=== PATIENT | male | born 1950 | race Caucasian/White ===

== ENCOUNTER 2018-11-15 17:24 | Emergency (ER) | payer BC, MEDICARE ==
[2018-11-15 18:23] VITALS: BP 150/78; PULSE 58
[2018-11-15] MEDS ORDERED: Lidocaine 1% with EPINEPHrine 1:100,000 20 ML MDV INFILT ONE (18:26)
--- NOTE | 2018-11-15 18:45 | EDM.PDOC ---
ED HPI GENERAL MEDICAL PROBLEM - General Chief Complaint: Skin Complaint Stated Complaint: LEFT UPPER ARM BLEEDING Time Seen by Provider: 11/15/18 18:10 Source of Information: Reports: Patient History Limitations: Reports: No Limitations - History of Present Illness INITIAL COMMENTS - FREE TEXT/NARRATIVE: Pt. presents to ER with complaints of post-op bleeding. Pt. states that he had a shave biopsy of a lesion on the L upper arm. He is currently on plavix but is not anticoagulated. He states that he has been painting his house and states that the area began to bleed. He was unable to get the bleeding to stop and came to the ER. He denies any discomfort to the area. Onset: Today Location: Reports: Upper Extremity, Left - Related Data Allergies Allergy/AdvReac Type Severity Reaction Status Date / Time No Known Allergies Allergy Verified 11/15/18 18:24 Home Meds: Home Meds Clopidogrel [Plavix] 75 mg PO DAILY 04/19/14 [History] atorvaSTATin [Lipitor] 40 mg PO BEDTIME 04/19/14 [History] Aspirin [Adult Low Dose Aspirin EC] 81 mg PO DAILY 05/22/14 [History] Metoprolol Tartrate [Lopressor] 12.5 mg PO Q12HR 05/22/14 [History] Multivitamin with Minerals [Multiple Vitamin] 1 tab PO DAILY 05/22/14 [History] Nitroglycerin [Nitrostat] 0.4 mg SL ASDIRECTED PRN 05/22/14 [History] [place]-3 Fatty Acids [[place]-3] 2,000 mg PO DAILY 05/22/14 [History] Past Medical History Other Respiratory History: spot found in 2009, possible pneumonia scar - Past Surgical History Other Cardiovascular Surgeries/Procedures: stents x4 Other Musculoskeletal Surgeries/Procedures:: rotator cuff Social & Family History - Tobacco Use Smoking Status *Q: Unknown Ever Smoked ED ROS GENERAL - Review of Systems Review Of Systems: See Below Constitutional: Reports: No Symptoms Musculoskeletal: Reports: Other (see above) Skin: Reports: Other (bleeding post surgical lesion. ) ED EXAM, SKIN/RASH Exam: See Below Exam Limited By: No Limitations General Appearance: Alert, WD/WN, No Apparent Distress Skin: Warm, Dry, Other (Approx. 1 cm in diameter what appears to be a shave biopsy of L lateral upper arm. There is oozing of blood primarily from the peripheral aspects of the biopsy margin.) ED SKIN PROCEDURES - Additional/Other Procedure(s) Other (Free Text) Procedure(s): The area was cleansed with chlorhexidine and normal saline. The bleeding areas of the biopsy base was cauterized with silver nitrate. One area continued to bleed. A total of 1 ml of lido with epi was infiltrated into the area to assist with hemostasis. The area was then cauterized again with silver nitrate. No further active bleeding was noted. Area was dressed with telfa. Course - Vital Signs Last Recorded V/S: Last Vital Signs Temp 36.4 C 11/15/18 18:10 Pulse 58 L 11/15/18 18:10 Resp 18 11/15/18 18:10 BP 150/78 H 11/15/18 18:10 Pulse Ox 96 11/15/18 18:10 - Orders/Labs/Meds Meds: Medications Discontinued Medications Generic Name Dose Route Start Last Admin Trade Name Freq PRN Reason Stop Dose Admin Lidocaine/Epinephrine 20 ml 11/15/18 18:26 11/15/18 18:38 Xylocaine 1% With Epinephrine 1:100,000 INFILT 11/15/18 18:27 20 ml ONETIME ONE Administration Departure - Departure Time of Disposition: 18:48 Disposition: Home, Self-Care 01 Clinical Impression: Post-op bleeding - Discharge Information Referrals: Carly Leon DO [Primary Care Provider] - Forms: ED Department Discharge Additional Instructions: Keep dressing on for 24 hours. Return if there is any redness, swelling, or discharge from the area. Do not exert yourself tonight-no lifting or strenuous activity as this will cause it to re-bleed. - Assessment/Plan Plan: Keep dressing on for 24 hours. Return if there is any redness, swelling, or discharge from the area. Do not exert yourself tonight-no lifting or strenuous activity as this will cause it to re-bleed.
== END 2018-11-15 18:44 | disposition home or self-care (01) ==
LOC: VM.ED 17:24
DX: L76.22 Postprocedural hemorrhage of skin and subcutaneous tissue following other procedure (principal); Z79.899 Other long term (current) drug therapy
CPT/HCPCS: 12001; 99283

== ENCOUNTER 2019-11-28 02:35 | Emergency (ER) | payer MEDICARE, OTHER ==
[2019-11-28] MEDS: Ondansetron 4 MG/2 ML SDV IVPUSH ONE (02:56)
[2019-11-28] MEDS: Sodium Chloride 0.9% 1,000 ML IV ONE ×2 (02:57→04:04)
[2019-11-28] MEDS: HYDROmorphone 1 MG/ML Syringe IVPUSH ONE ×2 (02:59→04:28)
[2019-11-28] MEDS: Ketorolac 15 MG/ML SDV IVPUSH ONE (03:01)
--- NOTE | 2019-11-28 03:05 | EDM.PDOC ---
ED HPI GENERAL MEDICAL PROBLEM - General Stated Complaint: flank pain Time Seen by Provider: 11/28/19 02:35 Source of Information: Reports: Patient History Limitations: Reports: No Limitations - History of Present Illness INITIAL COMMENTS - FREE TEXT/NARRATIVE: Pt. presents to ER with complaints of acute R sided back/flank pain. Pt. has a history of kidney stones in the past and states that the discomfort is similar. Pt. states that the discomfort started about 2 hours prior to arrival to ER. He also complains of some discomfort in his groin. Pt. is scheduled to start chemotherapy for metastatic small cell lung carcinoma on Wednesday. 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 Pt. states that the pain is constant. It is not made worse with movement and he states that it is constantly there. Pt. states that he was experiencing hemoptysis and increased shortness of breath post bronch in October. He states that he has been subsequently sleeping in a recliner to help with this. This is not a major complaint of his tonight. Onset: Today Onset Date: 11/28/19 Onset Time: 00:30 Location: Reports: Back Quality: Reports: Sharp Right Hip Pain Score (Numeric/FACES): 10 - Related Data Allergies Allergy/AdvReac Type Severity Reaction Status Date / Time No Known Allergies Allergy Verified 10/19/19 10:53 Home Meds: Home Meds Clopidogrel [Plavix] 75 mg PO DAILY 04/19/14 [History] atorvaSTATin [Lipitor] 40 mg PO BEDTIME 04/19/14 [History] Aspirin [Adult Low Dose Aspirin EC] 81 mg PO DAILY 05/22/14 [History] Metoprolol Tartrate [Lopressor] 12.5 mg PO BID 05/22/14 [History] Multivitamin with Minerals [Multiple Vitamin] 1 tab PO DAILY 05/22/14 [History] Nitroglycerin [Nitrostat] 0.4 mg SL ASDIRECTED PRN 05/22/14 [History] [place]-3 Fatty Acids [[place]-3] 2,000 mg PO DAILY 05/22/14 [History] Cholecalciferol (Vitamin D3) [Vitamin D3] 5,000 unit PO Q48H 10/19/19 [History] Clobetasol [Clobetasol Propionate 0.05%] 1 applic TOP BID PRN 10/19/19 [History] Nicotine [Nicoderm CQ] 7 mg TD DAILY 10/19/19 [History] Famotidine [Pepcid] 20 mg PO BID 11/28/19 [History] OLANZapine [ZyPREXA] 10 mg PO ASDIRECTED 11/28/19 [History] Ondansetron [Zofran] 8 mg PO TID PRN 11/28/19 [History] Prochlorperazine Maleate [Compazine] 10 mg PO QID PRN 11/28/19 [History] dexAMETHasone [Decadron] 8 mg PO ASDIRECTED 11/28/19 [History] Past Medical History Cardiovascular History: Reports: CAD, High Cholesterol, [place], Stents, Other (See Below) Other Cardiovascular History: mitral regurg Respiratory History: Reports: Other (See Below) Other Respiratory History: pulmonary nodule Gastrointestinal History: Reports: GERD, Hemorrhoids Genitourinary History: Reports: Renal Calculus, Other (See Below) Other Genitourinary History: urolith. ARF Psychiatric History: Reports: Other (See Below) Other Psychiatric History: smoker Oncologic (Cancer) History: Reports: Squamous Cell Carcinoma, Other (See Below) Other Oncologic History: bone metastases; cancer of unknown origins - Past Surgical History Cardiovascular Surgical History: Reports: Other (See Below) Other Cardiovascular Surgeries/Procedures: stents x4 GI Surgical History: Reports: Colonoscopy Female Surgical History: Reports: Lithotripsy/ESWL Other Female Surgeries/Procedures: cystoscopy Male Surgical History: Reports: Vasectomy, Other (See Below) Musculoskeletal Surgical History: Reports: Shoulder Surgery Other Musculoskeletal Surgeries/Procedures:: rotator cuff ED ROS GENERAL - Review of Systems Review Of Systems: See Below Constitutional: Reports: No Symptoms HEENT: Reports: No Symptoms Respiratory: Reports: No Symptoms Cardiovascular: Reports: No Symptoms Endocrine: Reports: No Symptoms GI/Abdominal: Reports: Nausea, Vomiting : Reports: Flank Pain (R sided, radiates into groin) Musculoskeletal: Reports: No Symptoms, Back Pain Skin: Reports: No Symptoms Neurological: Reports: No Symptoms Psychiatric: Reports: No Symptoms Hematologic/Lymphatic: Reports: No Symptoms Immunologic: Reports: No Symptoms ED EXAM, GENERAL - Physical Exam Exam: See Below Exam Limited By: No Limitations General Appearance: Alert, WD/WN, Moderate Distress Throat/Mouth: Normal Voice, No Airway Compromise Head: Atraumatic, Normocephalic Respiratory/Chest: No Respiratory Distress, Lungs Clear, No Accessory Muscle Use, Chest Non-Tender Cardiovascular: Normal Peripheral Pulses, Regular Rate, Rhythm, No Edema, No Murmur GI/Abdominal: Soft, Non-Tender, No Mass (Male) Exam: Deferred Rectal (Males) Exam: Deferred Back Exam: Normal Inspection, Full Range of Motion, CVA Tenderness (R), Other (Pain constant, unable to illicit increased pain with palpation) Extremities: Normal Inspection, Normal Range of Motion, Normal Capillary Refill Neurological: Alert, Oriented, CN II-XII Intact, Normal Cognition Psychiatric: Normal Affect, Normal Mood Skin Exam: Warm, Dry, Intact, Normal Color, No Rash Lymphatic: No Adenopathy Course - Vital Signs Last Recorded V/S: Last Vital Signs Temp 35.7 C L 11/28/19 02:40 Pulse 76 11/28/19 03:27 Resp 18 11/28/19 03:27 BP 141/88 H 11/28/19 03:27 Pulse Ox 92 L 11/28/19 03:27 - Orders/Labs/Meds Orders: Active Orders 24 hr Category Date Time Status Abdomen Pelvis wo Cont [CT] Stat Exams 11/28/19 03:24 Taken UA RFX GERRY AND CULT IF INDIC [URIN] Stat Lab 11/28/19 02:50 Ordered Sodium Chloride 0.9% [Normal Saline] 1,000 ml Med 11/28/19 03:57 Active IV ONETIME Sodium Chloride 0.9% [Saline Flush] Med 11/28/19 02:50 Active 10 ml FLUSH ASDIRECTED PRN Peripheral IV Insertion Adult [OM.PC] Routine Oth 11/28/19 02:50 Ordered Medication Orders Sodium Chloride (Normal Saline) 1,000 mls @ 999 mls/hr IV ONETIME ONE Stop: 11/28/19 04:57 Last Admin: 11/28/19 04:04 Dose: 999 mls/hr Documented by: MICHAEL Sodium Chloride (Saline Flush) 10 ml FLUSH ASDIRECTED PRN PRN Reason: Keep Vein Open Last Admin: 11/28/19 04:05 Dose: 10 ml Documented by: MICHAEL Labs: Laboratory Tests 11/28/19 11/28/19 Range/Units 03:10 03:10 WBC 10.6 H (4.0-10.0) x10^3/uL RBC 4.12 L (4.5-6.0) x10^6/uL Hgb 13.0 L D (14.0-18.0) g/dL Hct 37.4 L (40.0-52.0) % MCV 90.8 (78.0-93.0) fL MCH 31.6 (26.0-32.0) pg MCHC 34.8 (32.0-36.0) g/dL RDW Coeff of [place]imy 12.7 (10.0-15.0) % Plt Count 175 (130-400) x10^3/uL Neut % (Auto) 69.8 (50.0-80.0) % Lymph % (Auto) 16.8 L (25.0-50.0) % [place] % (Auto) 11.2 H (2.0-11.0) % Eos % (Auto) 2.0 (0.0-4.0) % Baso % (Auto) 0.2 (0.2-1.2) % Sodium 136 (136-145) mmol/L Potassium 4.3 (3.5-5.1) mmol/L Chloride 105 (98-107) mmol/L Carbon Dioxide 20 L (21-32) mmol/L Anion Gap 15.3 (10-20) mmol/L BUN 38 H D (7-18) mg/dL Creatinine 2.5 H D (0.70-1.30) mg/dL Est Cr Clr Drug Dosing 26.98 mL/min Estimated GFR (MDRD) 26 Glucose 120 H (74-106) mg/dL Calcium 8.1 L (8.5-10.1) mg/dL Corrected Calcium 9.06 (8.5-10.1) mg/dL Total Bilirubin 0.9 (0.2-1.0) mg/dL AST 34 (15-37) U/L ALT 23 (16-63) U/L Alkaline Phosphatase 435 H (46-116) U/L Total Protein 6.6 (6.4-8.2) g/dL Albumin 2.8 L (3.4-5.0) g/dL Globulin 3.8 Albumin/Globulin Ratio 0.74 Meds: Medications Generic Name Dose Route Start Last Admin Trade Name Kota PRN Reason Stop Dose Admin Sodium Chloride 1,000 mls @ 999 mls/hr 11/28/19 03:57 11/28/19 04:04 Normal Saline IV 11/28/19 04:57 999 mls/hr ONETIME ONE Administration Sodium Chloride 10 ml 11/28/19 02:50 11/28/19 04:05 Saline Flush FLUSH 10 ml ASDIRECTED PRN Administration Keep Vein Open Discontinued Medications Generic Name Dose Route Start Last Admin Trade Name Kota PRN Reason Stop Dose Admin Hydromorphone HCl 1 mg 11/28/19 02:51 11/28/19 02:59 Dilaudid IVPUSH 11/28/19 02:52 1 mg ONETIME ONE Administration Hydromorphone HCl 1 mg 11/28/19 04:23 11/28/19 04:28 Dilaudid IVPUSH 11/28/19 04:24 1 mg ONETIME ONE Administration Sodium Chloride 1,000 mls @ 1,000 mls/hr 11/28/19 02:51 11/28/19 02:57 Normal Saline IV 11/28/19 03:50 1,000 mls/hr .BOLUS ONE Administration Ketorolac Tromethamine 15 mg 11/28/19 02:52 11/28/19 03:01 Toradol IVPUSH 11/28/19 02:53 15 mg ONETIME ONE Administration Morphine Sulfate 4 mg 11/28/19 03:58 11/28/19 04:05 Morphine IVPUSH 11/28/19 03:59 4 mg ONETIME ONE Administration Ondansetron HCl 4 mg 11/28/19 02:51 11/28/19 02:56 Zofran IVPUSH 11/28/19 02:52 4 mg ONETIME ONE Administration - Radiology Interpretation Free Text/Narrative:: 3 mm stone with mild hydro on right. moderate hydro on the L on unclear etiology. Study forwarded to [place]. Departure - Departure Time of Disposition: 04:54 Disposition: DC/Tfer to Acute Hospital 02 Clinical Impression: ARF (acute renal failure), Nephrolithiasis, Bilateral hydronephrosis - Discharge Information Referrals: PCP,None [Primary Care Provider] - Sepsis Event Note (ED) - Focused Exam Vital Signs: Vital Signs Temp Pulse Resp BP Pulse Ox 11/28/19 03:27 76 18 141/88 H 92 L 11/28/19 03:08 86 L 11/28/19 02:40 35.7 C L 70 20 177/103 H 90 L - Problem List Review Problem List Initiated/Reviewed/Updated: Yes - My Orders Last 24 Hours: My Active Orders 11/28/19 02:50 UA RFX GERRY AND CULT IF INDIC [URIN] Stat Sodium Chloride 0.9% [Saline Flush] 10 ml FLUSH ASDIRECTED PRN Peripheral IV Insertion Adult [OM.PC] Routine 11/28/19 03:24 Abdomen Pelvis wo Cont [CT] Stat 11/28/19 03:57 Sodium Chloride 0.9% [Normal Saline] 1,000 ml IV ONETIME - Assessment/Plan Last 24 Hours: My Active Orders 11/28/19 02:50 UA RFX GERRY AND CULT IF INDIC [URIN] Stat Sodium Chloride 0.9% [Saline Flush] 10 ml FLUSH ASDIRECTED PRN Peripheral IV Insertion Adult [OM.PC] Routine 11/28/19 03:24 Abdomen Pelvis wo Cont [CT] Stat 11/28/19 03:57 Sodium Chloride 0.9% [Normal Saline] 1,000 ml IV ONETIME Plan: Pain was controlled with IV dilaudid and morphine. He was bladder scanned and only had 140ml of urine in the bladder. Discussed case with [place] Urologist. He feels that the patient needs to be transferred for further evaluation and care. He will be transported via [facility] ground ambulance. Awaiting call from hospitalist. All questions were answered.
[2019-11-28 03:37] LABS: ANION GAP 15.3 mmol/L (10-20)
[2019-11-28] MEDS: Sodium Chloride 0.9% 10 ML Syringe FLUSH PRN (04:05)
[2019-11-28] MEDS: Morphine 4 MG/ML Syringe IVPUSH ONE (04:05)
[2019-11-28 04:58] VITALS: BP 141/90; PULSE 70
[2019-11-28] MEDS: Tamsulosin 0.4 MG Cap.ER PO ONE (05:23)
--- NOTE | 2019-11-28 08:27 | CT ---
[id number] CT/CT Abdomen Pelvis WO IV EXAM: CT Abdomen Pelvis WO IV CLINICAL DATA: RIGHT SIDED FLANK PAIN COMPARISON STUDY: September 20, 2019. FINDINGS: Moderate right and small left pleural effusions. Partially visualized left basilar infiltrate. Moderate to advanced predominantly centrilobular emphysema. There are 2 separate 2 mm stones within the proximal third of the right ureter. There is mild right hydroureteronephrosis. There is also mild left hydroureteronephrosis without definite obstructing stone identified. There are no stones within the bladder. The prostate is mildly enlarged. Soft tissue nodularity seen throughout the mesentery. Multiple prominent mesenteric lymph nodes especially within the left upper quadrant measuring up to 1 cm. Small amount of free fluid within the pelvis. The liver, spleen, gallbladder and adrenal glands are unremarkable. A few punctate calcifications within the pancreas likely represent sequela of chronic pancreatitis. No bowel obstruction or inflammation. No pneumoperitoneum. Scattered changes of spondylosis the spine. There are innumerable sclerotic lesions seen throughout the visualized osseous structures. IMPRESSION: 1. 2 punctate stones within the proximal third of the right ureter. There is resulting mild right hydroureteronephrosis. 2. [id number] left hydronephrosis without definite obstructing stone. 3. Interval progression of peritoneal carcinomatosis and widespread osseous metastases. 4. Small amount of free fluid within the pelvis. 5. Moderate right and small left pleural effusions. Zana Vences DO 11/28/19 0867 Thank you for allowing us to participate in the care of your patient.
== END 2019-11-28 06:00 | disposition short-term general hospital (02) ==
LOC: VM.ED 02:35
DX: N17.9 Acute kidney failure, unspecified (principal); N13.2 Hydronephrosis with renal and ureteral calculous obstruction; I25.2 Old myocardial infarction; E78.00 Pure hypercholesterolemia, unspecified; K21.9 Gastro-esophageal reflux disease without esophagitis; Z79.82 Long term (current) use of aspirin; Z79.899 Other long term (current) drug therapy
CPT/HCPCS: 36415; 51798; 74176; 80053; 85025; 96361; 96374; 96375; 96376; 99284; 99285-25; A9270-GY; J1170; J1885; J2270; J2405; J7030

== ENCOUNTER 2020-03-14 15:30 | Emergency (ER) | payer MEDICARE, OTHER ==
[2020-03-14] MEDS ORDERED: Albuterol/Ipratropium 3.0-0.5 MG/3 ML Neb Soln NEB ONE (15:39)
[2020-03-14] MEDS ORDERED: Sodium Chloride 0.9% 10 ML Syringe FLUSH PRN (15:39)
--- NOTE | 2020-03-14 15:42 | EDM.PDOC ---
ED HPI GENERAL MEDICAL PROBLEM - General Stated Complaint: SOB Time Seen by Provider: 03/14/20 15:37 Source of Information: Reports: Patient - History of Present Illness INITIAL COMMENTS - FREE TEXT/NARRATIVE: Elio is a 69 y/o male who comes to the ER with increased SOB that started through the night and then got worse this AM. The patient is currently undergoing treatment for Lung CA with Dr Miller in [place]. He reports that he was recently started a "chemo pill" after seeing a doctor at [place]. He has had a low grave fever at home. He is usually on 2- 2.5 liters of oxygen at night and then room air during the day, but he has had to turn it up to 4 liters and wear it when he was out of bed. He did eat today, but the coughing has made him gag and vomit. - Related Data Allergies Allergy/AdvReac Type Severity Reaction Status Date / Time No Known Allergies Allergy Verified 10/19/19 10:53 Home Meds: Home Meds Clopidogrel [Plavix] 75 mg PO DAILY 04/19/14 [History] atorvaSTATin [Lipitor] 40 mg PO BEDTIME 04/19/14 [History] Aspirin [Adult Low Dose Aspirin EC] 81 mg PO DAILY 05/22/14 [History] Metoprolol Tartrate [Lopressor] 12.5 mg PO BID 05/22/14 [History] Multivitamin with Minerals [Multiple Vitamin] 1 tab PO DAILY 05/22/14 [History] Nitroglycerin [Nitrostat] 0.4 mg SL ASDIRECTED PRN 05/22/14 [History] [place]-3 Fatty Acids [[place]-3] 2,000 mg PO DAILY 05/22/14 [History] Cholecalciferol (Vitamin D3) [Vitamin D3] 5,000 unit PO Q48H 10/19/19 [History] Clobetasol [Clobetasol Propionate 0.05%] 1 applic TOP BID PRN 10/19/19 [History] Nicotine [Nicoderm CQ] 7 mg TD DAILY 10/19/19 [History] Famotidine [Pepcid] 20 mg PO BID 11/28/19 [History] OLANZapine [ZyPREXA] 10 mg PO ASDIRECTED 11/28/19 [History] Ondansetron [Zofran] 8 mg PO TID PRN 11/28/19 [History] Prochlorperazine Maleate [Compazine] 10 mg PO QID PRN 11/28/19 [History] dexAMETHasone [Decadron] 8 mg PO ASDIRECTED 11/28/19 [History] Past Medical History Cardiovascular History: Reports: CAD, High Cholesterol, [place], Stents, Other (See Below) Other Cardiovascular History: mitral regurg Respiratory History: Reports: Other (See Below) Other Respiratory History: pulmonary nodule Gastrointestinal History: Reports: GERD, Hemorrhoids Genitourinary History: Reports: Renal Calculus, Other (See Below) Other Genitourinary History: urolith. ARF Psychiatric History: Reports: Other (See Below) Other Psychiatric History: smoker Oncologic (Cancer) History: Reports: Squamous Cell Carcinoma, Other (See Below) Other Oncologic History: bone metastases; cancer of unknown origins - Past Surgical History Cardiovascular Surgical History: Reports: Other (See Below) Other Cardiovascular Surgeries/Procedures: stents x4 GI Surgical History: Reports: Colonoscopy Female Surgical History: Reports: Lithotripsy/ESWL Other Female Surgeries/Procedures: cystoscopy Male Surgical History: Reports: Vasectomy, Other (See Below) Musculoskeletal Surgical History: Reports: Shoulder Surgery Other Musculoskeletal Surgeries/Procedures:: rotator cuff Social & Family History - Family History Family Medical History: No Pertinent Family History - Caffeine Use Caffeine Use: Reports: None Review of Systems - Review of Systems Review Of Systems: See Below Constitutional: Reports: Fever Eyes: Reports: No Symptoms Ears: Reports: No Symptoms Nose: Reports: No Symptoms Mouth/Throat: Reports: No Symptoms Respiratory: Reports: Shortness of Breath, Cough Cardiovascular: Reports: No Symptoms GI/Abdominal: Reports: Nausea Genitourinary: Reports: No Symptoms Musculoskeletal: Reports: No Symptoms Skin: Reports: No Symptoms Neurological: Reports: No Symptoms Psychiatric: Reports: No Symptoms ED EXAM, GENERAL - Physical Exam Exam: See Below General Appearance: Alert, WD/WN, No Apparent Distress (Elderly male.) Eye Exam: Bilateral Eye: PERRL Ears: Normal External Exam, Normal Canal, Hearing Grossly Normal Nose: Normal Inspection, Normal Mucosa Throat/Mouth: Normal Inspection, Normal Lips, Normal Teeth, Normal Voice Head: Atraumatic, Normocephalic Neck: Normal Inspection, Supple Respiratory/Chest: Decreased Breath Sounds, Rales (scattered in bases), Other (hacky cough noted) Cardiovascular: Normal Peripheral Pulses, Regular Rate, Rhythm GI/Abdominal: Normal Bowel Sounds, Soft, Non-Tender (Male) Exam: Deferred Rectal (Males) Exam: Deferred Back Exam: Normal Inspection Extremities: Normal Inspection, Normal Range of Motion, Pedal Edema (bilateal ankles 1+, nonpitting) Neurological: Alert, Oriented, CN II-XII Intact, Normal Cognition, Normal Gait, No Motor/Sensory Deficits Psychiatric: Normal Affect, Normal Mood Skin Exam: Dry, Intact, Normal Color, Increased Warmth Course - Vital Signs Text/Narrative:: 1537 The patient was seen by the [facility] GR[facility]ER. Labs ordered. He was placed on oxygen at 4 liters here in the ER. His sats were in the on room air and after walking on. CXR and EKG ordered. Duoneb ordered also. 1605 COVID neg, Ceftriaxone 1gm IVP ordered since patient meets Sepsis criteria. Other labs pending. [address] Left greater than right opacities, smal bilateral pleural effusions and CTA showed ground glass opacities. Fever now 101.1, patient requiring 4 liters of oxygen to keep sats at 90%, Rapid COVID neg. [facility] contacted and transfer requested. Continue IV fluids. APAP 1gm po given for fever. 1834 Dr Loyd accepted the patient for direct admission to [address] [place] [address] at the [facility] location. Patient remained stable until he left the Er with [facility]. - Orders/Labs/Meds Orders: Active Orders 24 hr Category Date Time Status EKG Documentation Completion [RC] STAT Care 03/14/20 15:38 Active RT Aerosol Therapy [RC] ASDIRECTED Care 03/14/20 15:39 Active CULTURE BLOOD [BC] Stat Lab 03/14/20 15:40 Received CULTURE BLOOD [BC] Stat Lab 03/14/20 16:33 Received UA RFX GERRY AND CULT IF INDIC [URIN] Stat Lab 03/14/20 15:39 Ordered Sodium Chloride 0.9% @ 125 MLS/HR (1000ml) Med 03/14/20 18:45 Ordered Sodium Chloride 0.9% [Normal Saline] 1,000 ml IV ASDIRECTED Sodium Chloride 0.9% [Saline Flush] Med 03/14/20 15:39 Active 10 ml FLUSH ASDIRECTED PRN Blood Culture x2 Reflex Set [OM.PC] Stat Oth 03/14/20 15:38 Ordered Saline Lock Insert [OM.PC] Stat Oth 03/14/20 15:38 Ordered Medication Orders Sodium Chloride (Normal Saline) 1,000 mls @ 125 mls/hr IV ASDIRECTED CRUZ Sodium Chloride (Saline Flush) 10 ml FLUSH ASDIRECTED PRN PRN Reason: Keep Vein Open Labs: Laboratory Tests 03/14/20 03/14/20 03/14/20 Range/Units 15:30 15:40 15:40 WBC 5.9 (4.0-10.0) x10^3/uL RBC 3.49 L (4.5-6.0) x10^6/uL Hgb 11.7 L (14.0-18.0) g/dL Hct 34.8 L (40.0-52.0) % MCV 99.7 H D (78.0-93.0) fL MCH 33.5 H (26.0-32.0) pg MCHC 33.6 (32.0-36.0) g/dL RDW Coeff of Jeimy 15.0 (10.0-15.0) % Plt Count 132 (130-400) x10^3/uL Neut % (Auto) 65.9 (50.0-80.0) % Lymph % (Auto) 23.1 L (25.0-50.0) % Trego % (Auto) 10.0 (2.0-11.0) % Eos % (Auto) 0.5 (0.0-4.0) % Baso % (Auto) 0.5 (0.2-1.2) % PT 11.3 (9.5-12.3) SEC INR 1.0 L (2.0-3.5) APTT 27.2 (25.6-32.8) SEC D-Dimer, Quantitative (<=0.58) mg/LFEU Sodium (136-145) mmol/L Potassium (3.5-5.1) mmol/L Chloride (98-107) mmol/L Carbon Dioxide (21-32) mmol/L Anion Gap (10-20) mmol/L BUN (7-18) mg/dL Creatinine (0.70-1.30) mg/dL Est Cr Clr Drug Dosing Estimated GFR (MDRD) Glucose (74-106) mg/dL Lactic Acid (0.4-2.0) mmol/L Calcium (8.5-10.1) mg/dL Corrected Calcium (8.5-10.1) mg/dL Magnesium (1.8-2.4) mg/dL Ferritin (26-388) ng/mL Total Bilirubin (0.2-1.0) mg/dL AST (15-37) U/L ALT (16-63) U/L Alkaline Phosphatase (46-116) U/L Troponin I (<=0.056) ng/mL C-Reactive Protein (<=0.9) mg/dL Total Protein (6.4-8.2) g/dL Albumin (3.4-5.0) g/dL Globulin Albumin/Globulin Ratio SARS CoV-2 RNA Rapid ADRIA Negative (NEGATIVE) 03/14/20 03/14/20 03/14/20 Range/Units 15:40 15:40 15:40 WBC (4.0-10.0) x10^3/uL RBC (4.5-6.0) x10^6/uL Hgb (14.0-18.0) g/dL Hct (40.0-52.0) % MCV (78.0-93.0) fL MCH (26.0-32.0) pg MCHC (32.0-36.0) g/dL RDW Coeff of Jeimy (10.0-15.0) % Plt Count (130-400) x10^3/uL Neut % (Auto) (50.0-80.0) % Lymph % (Auto) (25.0-50.0) % Trego % (Auto) (2.0-11.0) % Eos % (Auto) (0.0-4.0) % Baso % (Auto) (0.2-1.2) % PT (9.5-12.3) SEC INR (2.0-3.5) APTT (25.6-32.8) SEC D-Dimer, Quantitative > 35.20 H (<=0.58) mg/LFEU Sodium 137 (136-145) mmol/L Potassium 4.2 (3.5-5.1) mmol/L Chloride 100 (98-107) mmol/L Carbon Dioxide 29 (21-32) mmol/L Anion Gap 12.2 (10-20) mmol/L BUN 31 H (7-18) mg/dL Creatinine 1.9 H (0.70-1.30) mg/dL Est Cr Clr Drug Dosing TNP Estimated GFR (MDRD) 35 Glucose 118 H (74-106) mg/dL Lactic Acid 3.5 H* (0.4-2.0) mmol/L Calcium 7.6 L (8.5-10.1) mg/dL Corrected Calcium 8.48 L (8.5-10.1) mg/dL Magnesium 2.0 (1.8-2.4) mg/dL Ferritin (26-388) ng/mL Total Bilirubin 0.7 (0.2-1.0) mg/dL AST 80 H (15-37) U/L ALT 56 (16-63) U/L Alkaline Phosphatase 450 H (46-116) U/L Troponin I < 0.017 (<=0.056) ng/mL C-Reactive Protein 12.2 H (<=0.9) mg/dL Total Protein 6.0 L (6.4-8.2) g/dL Albumin 2.9 L (3.4-5.0) g/dL Globulin 3.1 Albumin/Globulin Ratio 0.94 SARS CoV-2 RNA Rapid ADRIA (NEGATIVE) 03/14/20 Range/Units 15:40 WBC (4.0-10.0) x10^3/uL RBC (4.5-6.0) x10^6/uL Hgb (14.0-18.0) g/dL Hct (40.0-52.0) % MCV (78.0-93.0) fL MCH (26.0-32.0) pg MCHC (32.0-36.0) g/dL RDW Coeff of Jeimy (10.0-15.0) % Plt Count (130-400) x10^3/uL Neut % (Auto) (50.0-80.0) % Lymph % (Auto) (25.0-50.0) % Trego % (Auto) (2.0-11.0) % Eos % (Auto) (0.0-4.0) % Baso % (Auto) (0.2-1.2) % PT (9.5-12.3) SEC INR (2.0-3.5) APTT (25.6-32.8) SEC D-Dimer, Quantitative (<=0.58) mg/LFEU Sodium (136-145) mmol/L Potassium (3.5-5.1) mmol/L Chloride (98-107) mmol/L Carbon Dioxide (21-32) mmol/L Anion Gap (10-20) mmol/L BUN (7-18) mg/dL Creatinine (0.70-1.30) mg/dL Est Cr Clr Drug Dosing Estimated GFR (MDRD) Glucose (74-106) mg/dL Lactic Acid (0.4-2.0) mmol/L Calcium (8.5-10.1) mg/dL Corrected Calcium (8.5-10.1) mg/dL Magnesium (1.8-2.4) mg/dL Ferritin 3706 H (26-388) ng/mL Total Bilirubin (0.2-1.0) mg/dL AST (15-37) U/L ALT (16-63) U/L Alkaline Phosphatase (46-116) U/L Troponin I (<=0.056) ng/mL C-Reactive Protein (<=0.9) mg/dL Total Protein (6.4-8.2) g/dL Albumin (3.4-5.0) g/dL Globulin Albumin/Globulin Ratio SARS CoV-2 RNA Rapid ADRIA (NEGATIVE) Meds: Medications Generic Name Dose Route Start Last Admin Trade Name Freq PRN Reason Stop Dose Admin Sodium Chloride 1,000 mls @ 125 mls/hr 03/14/20 18:45 Normal Saline IV ASDIRECTED CRUZ Sodium Chloride 10 ml 03/14/20 15:39 Saline Flush FLUSH ASDIRECTED PRN Keep Vein Open Discontinued Medications Generic Name Dose Route Start Last Admin Trade Name Freq PRN Reason Stop Dose Admin Acetaminophen 1,000 mg 03/14/20 18:13 Tylenol Extra Strength PO 03/14/20 18:14 ONETIME ONE Albuterol/Ipratropium 3 ml 03/14/20 15:39 03/14/20 15:45 Duoneb 3.0-0.5 Mg/3 Ml NEB 03/14/20 15:40 3 ml ONETIME ONE Administration Ceftriaxone Sodium 1 gm 03/14/20 16:05 03/14/20 16:13 Rocephin IVPUSH 03/14/20 16:06 1 gm STAT ONE Administration Sodium Chloride 1,000 mls @ 999 mls/hr 03/14/20 15:44 03/14/20 15:45 Normal Saline IV 03/14/20 16:44 999 mls/hr ONETIME ONE Administration Iopamidol 100 ml 03/14/20 16:56 03/14/20 16:57 Isovue-300 (61%) IVPUSH 03/14/20 16:57 100 ml ONETIME ONE Administration Ondansetron HCl 4 mg 03/14/20 15:44 03/14/20 16:13 Zofran IVPUSH 03/14/20 15:45 4 mg ONETIME ONE Administration - Radiology Interpretation Free Text/Narrative:: XR Chest 1V=bilateral opacities, L>R; small bilateral pleural effusions CTA=bilateral pleural effusions, groundglass opacification of both lungs, small ascites (See final report) Departure - Departure Time of Disposition: 18:35 Disposition: DC/Tfer to [facility] 02 Preliminary Cause of *Q: Cardiac Arrest Clinical Impression: Respiratory distress, Lung cancer metastatic to bone, Pleural effusion, bilateral, Lactic acid increased Pneumonia Qualifiers: Pneumonia type: due to unspecified organism Laterality: bilateral Lung location: unspecified part of lung Qualified Code(s): J18.9 - Pneumonia, unspecified organism Fever Qualifiers: Fever type: unspecified Qualified Code(s): R50.9 - Fever, unspecified - Discharge Information Referrals: Carly Leon DO [Primary Care Provider] - Forms: Interfacility Transfer EMTALA - My Orders Last 24 Hours: My Active Orders 03/14/20 15:38 EKG Documentation Completion [RC] STAT Blood Culture x2 Reflex Set [OM.PC] Stat Saline Lock Insert [OM.PC] Stat 03/14/20 15:39 RT Aerosol Therapy [RC] ASDIRECTED UA RFX GERRY AND CULT IF INDIC [URIN] Stat Sodium Chloride 0.9% [Saline Flush] 10 ml FLUSH ASDIRECTED PRN 03/14/20 15:40 CULTURE BLOOD [BC] Stat 03/14/20 16:33 CULTURE BLOOD [BC] Stat 03/14/20 18:45 Sodium Chloride 0.9% @ 125 MLS/HR (1000ml) Sodium Chloride 0.9% [Normal Saline] 1,000 ml IV ASDIRECTED - Assessment/Plan Last 24 Hours: My Active Orders 03/14/20 15:38 EKG Documentation Completion [RC] STAT Blood Culture x2 Reflex Set [OM.PC] Stat Saline Lock Insert [OM.PC] Stat 03/14/20 15:39 RT Aerosol Therapy [RC] ASDIRECTED UA RFX GERRY AND CULT IF INDIC [URIN] Stat Sodium Chloride 0.9% [Saline Flush] 10 ml FLUSH ASDIRECTED PRN 03/14/20 15:40 CULTURE BLOOD [BC] Stat 03/14/20 16:33 CULTURE BLOOD [BC] Stat 03/14/20 18:45 Sodium Chloride 0.9% @ 125 MLS/HR (1000ml) Sodium Chloride 0.9% [Normal Saline] 1,000 ml IV ASDIRECTED Assessment:: 1)Fever 2)R/O Pneumonia 3)R/O Sepsis 4)Lung CA Plan: -Transfer to Dr Loyd at [address] [place] [address] -IV fluids and oxygen on
[2020-03-14] MEDS ORDERED: Sodium Chloride 0.9% 1,000 ML IV ONE (15:44)
[2020-03-14] MEDS ORDERED: Ondansetron 4 MG/2 ML SDV IVPUSH ONE (15:44)
[2020-03-14] MEDS ORDERED: cefTRIAXone 1 GM Vial IVPUSH ONE (16:05)
[2020-03-14 16:23] LABS: PTT,PARTIAL THROMBOPLSTIN TIME 27.2 SEC (25.6-32.8)
[2020-03-14 16:51] LABS: CHLORIDE,CL 100 mmol/L (98-107); SODIUM,NA 137 mmol/L (136-145)
[2020-03-14 16:52] LABS: ANION GAP 12.2 mmol/L (10-20)
[2020-03-14] MEDS ORDERED: Iopamidol 612 MG/ML 100 ML Bottle IVPUSH ONE (16:56)
--- NOTE | 2020-03-14 17:28 | CR ---
[id number] RAD/RAD Chest PA or AP 1V EXAM: RAD Chest PA or AP 1V INDICATION: LUNG CANCER, FEVER, NEG COVID, SHORTNESS OF BREATH. COMPARISON: 2014. DISCUSSION: Left greater than right parenchymal opacities. Small bilateral pleural effusions. Low lung volumes. Cardiomegaly and central vascular congestion. In setting of fever, pneumonia is possible. Differential diagnosis includes congestive heart failure exacerbation. IMPRESSION: The above. Júnior Nye MD 03/14/20 [id number] Thank you for allowing us to participate in the care of your patient.
[2020-03-14] MEDS ORDERED: Acetaminophen 500 MG Tab PO ONE (18:13)
[2020-03-14] MEDS ORDERED: Sodium Chloride 0.9% 1,000 ML IV SCH (18:45)
[2020-03-14 21:47] VITALS: BP 138/92; PULSE 98
--- NOTE | 2020-03-15 07:50 | CT ---
[id number] CT/CTA Chest EXAM: CTA Chest CLINICAL DATA: POSITIVE D DIMER, SHORTNESS OF BREATH, LUNG CANCER. COMPARISON STUDY: Radiograph from today. FINDINGS: Lungs: Moderate to large bilateral pleural effusions right greater than left. Scattered patchy areas of groundglass opacification in both lungs. These are scattered diffuse and symmetric in the aerated portion of the lungs. Majority findings are subpleural in location. Findings are superimposed on apical predominant parenchymal emphysema. Differential diagnosis includes pneumonia or pulmonary edema is setting of acute congestive heart failure exacerbation. Mediastinum: No mediastinal or hilar lymphadenopathy. Heart and great vessels: Heart is normal in size. No pericardial effusion. Thoracic aorta is normal in caliber. Pulmonary arteries are normal in caliber. Negative for pulmonary embolus. Bones: Extensive diffuse sclerotic osseous metastases throughout the visualized osseous structures. Upper abdomen: Abnormal appearance of the liver. Liver demonstrates a diffusely nodular contour. Small amount of ascites in the upper abdomen. Correlate with LFTs for underlying hepatocellular disease or cirrhosis. Partially visualized left sided hydronephrosis. Findings extend beyond the field of view of this examination. IMPRESSION: Extensive changes of fluid retention the chest, including bilateral pleural effusions. Etiology is nonspecific, as the heart is not enlarged, making congestive heart failure exacerbation less likely. Abnormal groundglass parenchymal opacification in both lungs. Findings could represent pulmonary edema. However, was pneumonia including sequela of Covid 19 demonstrates a similar appearance. Correlate for signs of infection. Abnormal appearance of the liver suggesting underlying hepatocellular disease/cirrhosis. Correlate with LFTs. Small amount ascites in the upper abdomen. Other findings are described above. Júnior Nye MD 03/15/20 0749 Thank you for allowing us to participate in the care of your patient.
== END 2020-03-14 19:25 | disposition short-term general hospital (02) ==
LOC: VM.ED 15:30
DX: C34.90 Malignant neoplasm of unspecified part of unspecified bronchus or lung (principal); C79.51 Secondary malignant neoplasm of bone; J90 Pleural effusion, not elsewhere classified; R74.02 Elevation of levels of lactic acid dehydrogenase [LDH]; I25.10 Atherosclerotic heart disease of native coronary artery without angina pectoris; E78.00 Pure hypercholesterolemia, unspecified; I25.2 Old myocardial infarction; K21.9 Gastro-esophageal reflux disease without esophagitis; Z79.82 Long term (current) use of aspirin; Z79.02 Long term (current) use of antithrombotics/antiplatelets; Z20.828 Contact with and (suspected) exposure to other viral communicable diseases; Z95.5 Presence of coronary angioplasty implant and graft
CPT/HCPCS: 36415; 71045; 71275; 80053; 82728; 83605; 83735; 84484; 85025; 85379; 85610; 85730; 86140; 87040; 93005; 94640; 96374; 96375; 99284; 99285; A9270; J0696; J2405; J7030; Q9967; U0002; J7620-GY

== ENCOUNTER 2020-04-25 02:05 | Emergency (ER) | payer MEDICARE, OTHER ==
--- NOTE | 2020-04-25 02:27 | EDM.PDOC ---
ED HPI GENERAL MEDICAL PROBLEM - General Chief Complaint: Respiratory Problem Stated Complaint: Shortness of Breath Time Seen by Provider: 04/25/20 02:18 Source of Information: Reports: Patient History Limitations: Reports: Respiratory Distress - History of Present Illness INITIAL COMMENTS - FREE TEXT/NARRATIVE: Patient comes emergency department today from home with complaints of shortness of breath and pain in his chest. Patient has a known history of metastatic lung cancer. Non-small cell cancer with metastatic disease who is currently on home oral chemotherapy. He relates over the past couple of days he has been at his baseline of breathing and is felt quite well. Until tonight acutely about midnight he became quite short of breath and it was quite difficult for him to breathe at home. He is on chronic 4 L of oxygen at home which she is continuing to use. He has nebulizers that he uses throughout the day but he did not use anything as needed for his acute shortness of breath. He says he has a feeling of someone squeezing his heart with a deep breath or when he takes of breath. He has no pain when he has not actively taking a breath. He denies any fever or chills. No more fatigue or weakness than chronically with his cancer he relates. No syncope. No abdominal pain nausea or vomiting. He did recently have a centesis with some drainage of fluid off his abdomen just a couple of days ago in [place]. No hematuria dysuria or urinary frequency. No black or tarry stools. No Covid exposure no Covid symptoms according to the patient. - Related Data Allergies Allergy/AdvReac Type Severity Reaction Status Date / Time No Known Allergies Allergy Verified 04/25/20 02:24 Home Meds: Home Meds Clopidogrel [Plavix] 75 mg PO DAILY 04/19/14 [History] atorvaSTATin [Lipitor] 40 mg PO BEDTIME 04/19/14 [History] Aspirin [Adult Low Dose Aspirin EC] 81 mg PO DAILY 05/22/14 [History] Metoprolol Tartrate [Lopressor] 25 mg PO BID 05/22/14 [History] Multivitamin with Minerals [Multiple Vitamin] 1 tab PO DAILY 05/22/14 [History] Nitroglycerin [Nitrostat] 0.4 mg SL ASDIRECTED PRN 05/22/14 [History] [place]-3 Fatty Acids [[place]-3] 2,000 mg PO DAILY 05/22/14 [History] Cholecalciferol (Vitamin D3) [Vitamin D3] 5,000 unit PO Q48H 10/19/19 [History] Clobetasol [Clobetasol Propionate 0.05%] 1 applic TOP BID PRN 10/19/19 [History] Nicotine [Nicoderm CQ] 7 mg TD DAILY 10/19/19 [History] Famotidine [Pepcid] 20 mg PO BID 11/28/19 [History] OLANZapine [ZyPREXA] 10 mg PO ASDIRECTED 11/28/19 [History] Ondansetron [Zofran] 8 mg PO TID PRN 11/28/19 [History] Prochlorperazine Maleate [Compazine] 10 mg PO QID PRN 11/28/19 [History] dexAMETHasone [Decadron] 8 mg PO ASDIRECTED 11/28/19 [History] Past Medical History Cardiovascular History: Reports: CAD, High Cholesterol, OR, Stents, Other (See Below) Other Cardiovascular History: mitral regurg Respiratory History: Reports: Other (See Below) Other Respiratory History: pulmonary nodule Gastrointestinal History: Reports: GERD, Hemorrhoids Genitourinary History: Reports: Renal Calculus, Other (See Below) Other Genitourinary History: urolith. ARF Psychiatric History: Reports: Other (See Below) Other Psychiatric History: smoker Oncologic (Cancer) History: Reports: Lung, Squamous Cell Carcinoma, Other (See Below) Other Oncologic History: bone metastases; cancer of unknown origins - Past Surgical History Cardiovascular Surgical History: Reports: Other (See Below) Other Cardiovascular Surgeries/Procedures: stents x4 GI Surgical History: Reports: Colonoscopy Female Surgical History: Reports: Lithotripsy/ESWL Other Female Surgeries/Procedures: cystoscopy Male Surgical History: Reports: Vasectomy, Other (See Below) Musculoskeletal Surgical History: Reports: Shoulder Surgery Other Musculoskeletal Surgeries/Procedures:: rotator cuff Social & Family History - Family History Family Medical History: No Pertinent Family History - Caffeine Use Caffeine Use: Reports: None ED ROS GENERAL - Review of Systems Review Of Systems: Comprehensive ROS is negative, except as noted in HPI. ED EXAM, GENERAL - Physical Exam Exam: See Below Free Text/Narrative:: As patient is in moderate respiratory distress when I come into the room. He is only able to speak in 2-4 word sentences. He is somewhat cachectic and frail- appearing. He does have some clavicular retractions no costal retractions. He is quite tachypneic with a respiratory rate of about 32. Exam Limited By: Respiratory Distress General Appearance: Alert, Moderate Distress, Cachetic Eye Exam: Bilateral Eye: EOMI Ears: Normal External Exam Nose: Normal Inspection, Normal Mucosa, No Blood Throat/Mouth: Normal Inspection Head: Atraumatic, Normocephalic Neck: Normal Inspection Respiratory/Chest: Respiratory Distress, Decreased Breath Sounds (More on the left than the right.), Crackles (Bilateral crackles in the bases), Wheezing (Inspiratory expiratory wheezing bilaterally more on the left than the right.), Accessory Muscle Use. No: Stridor Cardiovascular: Normal Peripheral Pulses, Regular Rate, Rhythm Peripheral Pulses: 2+: Radial (L), Radial (R) GI/Abdominal: Normal Bowel Sounds, Soft, Non-Tender, Other (There is a dressing to the right lower quadrant where he had a centesis of that is dry and intact. No exudate. No erythema induration or swelling. The rest of the abdomen is soft mildly distended.) (Male) Exam: Deferred Rectal (Males) Exam: Deferred Back Exam: Normal Inspection Extremities: Normal Inspection, No Pedal Edema, Normal Capillary Refill Neurological: Alert, Oriented, Normal Cognition, No Motor/Sensory Deficits Psychiatric: Anxious Skin Exam: Dry, Intact, No Rash, Cool, Pallor #1 Interpretation EKG Date: 04/25/20 Time: 02:11 Rhythm: NSR Rate (Beats/Min): 90 [place]: Normal P-Wave: Present QRS: Normal ST-T: Normal QT: Normal Course - Vital Signs Last Recorded V/S: Last Vital Signs Temp 98 F 04/25/20 02:54 Pulse 87 04/25/20 02:54 Resp 22 H 04/25/20 02:54 BP 161/100 H 04/25/20 02:54 Pulse Ox 94 L 04/25/20 02:54 - Orders/Labs/Meds Orders: Active Orders 24 hr Category Date Time Status RT Aerosol Therapy [RC] ASDIRECTED Care 04/25/20 02:28 Active RT Aerosol Therapy [RC] ASDIRECTED Care 04/25/20 03:35 Ordered Chest 1V Frontal [CR] Stat Exams 04/25/20 02:27 Taken C-REACTIVE PROTEIN [CHEM] Stat Lab 04/25/20 02:45 Results COMPREHENSIVE METABOLIC PN,CMP [CHEM] Stat Lab 04/25/20 02:45 Results CORONAVIRUS COVID-19 PCR PHL Stat Lab 04/25/20 03:46 Ordered CULTURE BLOOD [BC] Stat Lab 04/25/20 03:06 Ordered CULTURE BLOOD [BC] Stat Lab 04/25/20 03:06 Ordered TROPONIN I [CHEM] Stat Lab 04/25/20 02:45 Results UA RFX GERRY AND CULT IF INDIC [URIN] Stat Lab 04/25/20 03:23 Ordered Azithromycin [Zithromax] 500 mg Med 04/25/20 03:20 Active Sodium Chloride 0.9% [Normal Saline (AdvBag)] 250 ml IV STAT Lactated Ringers @ 125 MLS/HR(1,000ml) Med 04/25/20 03:45 Ordered Lactated Ringers [Ringers, Lactated] 1,000 ml IV ASDIRECTED Blood Culture x2 Reflex Set [OM.PC] Stat Oth 04/25/20 03:06 Ordered Medication Orders Azithromycin 500 mg/ Sodium (Chloride) 250 mls @ 250 mls/hr IV STAT ONE Stop: 04/25/20 04:19 Last Admin: 04/25/20 03:36 Dose: 250 mls/hr Documented by: Lactated Ringer's (Ringers, Lactated) 1,000 mls @ 125 mls/hr IV ASDIRECTED CRUZ Last Admin: 04/25/20 03:43 Dose: 125 mls/hr Documented by: Labs: Laboratory Tests 04/25/20 04/25/20 04/25/20 Range/Units 02:45 02:45 02:45 WBC 14.3 H (4.0-10.0) x10^3/uL RBC 3.36 L (4.5-6.0) x10^6/uL Hgb 11.3 L (14.0-18.0) g/dL Hct 33.7 L (40.0-52.0) % MCV 100.3 H (78.0-93.0) fL MCH 33.6 H (26.0-32.0) pg MCHC 33.5 (32.0-36.0) g/dL RDW Coeff of Jeimy 16.8 H (10.0-15.0) % Plt Count 212 D (130-400) x10^3/uL Neut % (Auto) 77.7 (50.0-80.0) % Lymph % (Auto) 14.3 L (25.0-50.0) % [place] % (Auto) 7.8 (2.0-11.0) % Eos % (Auto) 0.1 (0.0-4.0) % Baso % (Auto) 0.1 L (0.2-1.2) % Sodium 133 L (136-145) mmol/L Potassium 3.9 (3.5-5.1) mmol/L Chloride 93 L (98-107) mmol/L Carbon Dioxide 36 H D (21-32) mmol/L Anion Gap 7.9 L (10-20) mmol/L BUN 48 H (7-18) mg/dL Creatinine 2.6 H (0.70-1.30) mg/dL Est Cr Clr Drug Dosing 24.20 mL/min Estimated GFR (MDRD) 25 Glucose 124 H (74-106) mg/dL Lactic Acid 2.4 H* (0.4-2.0) mmol/L Calcium 7.7 L (8.5-10.1) mg/dL Corrected Calcium 9.62 (8.5-10.1) mg/dL Total Bilirubin 0.6 (0.2-1.0) mg/dL AST 156 H (15-37) U/L ALT 87 H (16-63) U/L Troponin I 0.022 (<=0.056) ng/mL C-Reactive Protein 28.7 H (<=0.9) mg/dL NT-Pro-B Natriuret Pep (<=125) pg/mL Total Protein 5.5 L (6.4-8.2) g/dL Albumin 1.6 L (3.4-5.0) g/dL Globulin 3.9 Albumin/Globulin Ratio 0.41 04/25/20 Range/Units 02:45 WBC (4.0-10.0) x10^3/uL RBC (4.5-6.0) x10^6/uL Hgb (14.0-18.0) g/dL Hct (40.0-52.0) % MCV (78.0-93.0) fL MCH (26.0-32.0) pg MCHC (32.0-36.0) g/dL RDW Coeff of [place]imy (10.0-15.0) % Plt Count (130-400) x10^3/uL Neut % (Auto) (50.0-80.0) % Lymph % (Auto) (25.0-50.0) % [place] % (Auto) (2.0-11.0) % Eos % (Auto) (0.0-4.0) % Baso % (Auto) (0.2-1.2) % Sodium (136-145) mmol/L Potassium (3.5-5.1) mmol/L Chloride (98-107) mmol/L Carbon Dioxide (21-32) mmol/L Anion Gap (10-20) mmol/L BUN (7-18) mg/dL Creatinine (0.70-1.30) mg/dL Est Cr Clr Drug Dosing mL/min Estimated GFR (MDRD) Glucose (74-106) mg/dL Lactic Acid (0.4-2.0) mmol/L Calcium (8.5-10.1) mg/dL Corrected Calcium (8.5-10.1) mg/dL Total Bilirubin (0.2-1.0) mg/dL AST (15-37) U/L ALT (16-63) U/L Troponin I (<=0.056) ng/mL C-Reactive Protein (<=0.9) mg/dL NT-Pro-B Natriuret Pep 638 H (<=125) pg/mL Total Protein (6.4-8.2) g/dL Albumin (3.4-5.0) g/dL Globulin Albumin/Globulin Ratio Meds: Medications Generic Name Dose Route Start Last Admin Trade Name Freq PRN Reason Stop Dose Admin Azithromycin 500 mg/ Sodium 250 mls @ 250 mls/hr 04/25/20 03:20 04/25/20 03:36 Chloride IV 04/25/20 04:19 250 mls/hr STAT ONE Administration Lactated Ringer's 1,000 mls @ 125 mls/hr 04/25/20 03:45 04/25/20 03:43 Ringers, Lactated IV 125 mls/hr ASDIRECTED CRUZ Administration Discontinued Medications Generic Name Dose Route Start Last Admin Trade Name Freq PRN Reason Stop Dose Admin Albuterol/Ipratropium 3 ml 04/25/20 02:28 04/25/20 02:32 Duoneb 3.0-0.5 Mg/3 Ml NEB 04/25/20 02:29 3 ml ONETIME ONE Administration Budesonide 1 mg 04/25/20 03:34 04/25/20 03:42 Pulmicort NEB 04/25/20 03:35 1 mg ONETIME ONE Administration Ceftriaxone Sodium 1 gm 04/25/20 03:20 04/25/20 03:30 Rocephin IVPUSH 04/25/20 03:21 1 gm STAT ONE Administration Methylprednisolone Sodium Succinate 125 mg 04/25/20 02:28 04/25/20 02:48 Solu-Medrol IVPUSH 04/25/20 02:29 125 mg ONETIME ONE Administration - Radiology Interpretation Free Text/Narrative:: Chest x-ray per radiology shows extensive bilateral coarse infiltrates. Possible right infrahilar mass or infiltrate. No pneumothorax. Small bilateral effusions extensive sclerotic metastatic disease of the bones. - Re-Assessments/Exams Free Text/Narrative Re-Assessment/Exam: 04/25/20 03:51 Initial EKG shows no ST elevation or depression when reviewed extemporaneously by myself although this is somewhat limited due to respiratory cycling on the EKG. IV was established labs are drawn. DuoNeb nebulizer with quite a bit of improvement of the patient's work of breathing and improved air movement bilaterally. Although he continues to be tachypneic. Blood cultures x2 are pending. Has an elevated white blood cell count of about 14. Mild elevation of his lactic acid at 2.4. He does have acute kidney injury with a creatinine of 2.6 with a BUN of 47 reviewing his chart and [facility] looks like his baseline creatinine is about 1.4. Lactated Ringer's 250 mill bolus then 125 mils an hour. His proBNP is minimally elevated about 600. His troponin is within normal limits at 0.022. His chest x-ray shows extensive bilateral coarse infiltrates. As well as extensive sclerotic metastatic disease. Budesonide nebulizer 1 mg. Solu-Medrol 125 mg IV push. Ceftriaxone 1 g IV piggyback. Azithromycin 500 mg IV piggyback. 04/25/20 04:35 Due to the patient's continued respiratory distress although he is tolerating this quite well he still has some retractions his bilateral pneumonia is acute kidney injury and his underlying malignancy I called and spoke with Dr. Pineda at [facility] in [place]. HPI ER COURSE findings and concerns were relayed to him. He accepted the patient in transfer at this time by ambulance with no further orders at this time. I discussed the plan of care with the patient and his . They are comfortable with this plan and their questions are answered. Pt verifies that he is still a Code level 1. Departure - Departure Time of Disposition: 04:30 Disposition: DC/Tfer to [facility] 02 Clinical Impression: Acute kidney injury, Respiratory distress, Pleural effusion, bilateral, Acute on chronic respiratory failure with hypoxia, Lung cancer metastatic to bone Pneumonia Qualifiers: Pneumonia type: due to unspecified organism Laterality: bilateral Lung location: unspecified part of lung Qualified Code(s): J18.9 - Pneumonia, unspecified organism - Discharge Information Referrals: Carly Leon DO [Primary Care Provider] - Forms: ED Department Discharge, Interfacility Transfer [facility] Sepsis Event Note (ED) - Focused Exam Vital Signs: Vital Signs Temp Pulse Resp BP Pulse Ox 04/25/20 02:54 98 F 87 22 H 161/100 H 94 L - My Orders Last 24 Hours: My Active Orders 04/25/20 02:27 Chest 1V Frontal [CR] Stat 04/25/20 02:28 RT Aerosol Therapy [RC] ASDIRECTED 04/25/20 02:45 C-REACTIVE PROTEIN [CHEM] Stat COMPREHENSIVE METABOLIC PN,CMP [CHEM] Stat TROPONIN I [CHEM] Stat 04/25/20 03:06 CULTURE BLOOD [BC] Stat CULTURE BLOOD [BC] Stat Blood Culture x2 Reflex Set [OM.PC] Stat 04/25/20 03:20 Azithromycin [Zithromax] 500 mg Sodium Chloride 0.9% [Normal Saline (AdvBag)] 250 ml IV STAT 04/25/20 03:23 UA RFX GERRY AND CULT IF INDIC [URIN] Stat 04/25/20 03:35 RT Aerosol Therapy [RC] ASDIRECTED 04/25/20 03:45 Lactated Ringers @ 125 MLS/HR(1,000ml) Lactated Ringers [Ringers, Lactated] 1,000 ml IV ASDIRECTED 04/25/20 03:46 CORONAVIRUS COVID-19 PCR PHL Stat - Assessment/Plan Last 24 Hours: My Active Orders 04/25/20 02:27 Chest 1V Frontal [CR] Stat 04/25/20 02:28 RT Aerosol Therapy [RC] ASDIRECTED 04/25/20 02:45 C-REACTIVE PROTEIN [CHEM] Stat COMPREHENSIVE METABOLIC PN,CMP [CHEM] Stat TROPONIN I [CHEM] Stat 04/25/20 03:06 CULTURE BLOOD [BC] Stat CULTURE BLOOD [BC] Stat Blood Culture x2 Reflex Set [OM.PC] Stat 04/25/20 03:20 Azithromycin [Zithromax] 500 mg Sodium Chloride 0.9% [Normal Saline (AdvBag)] 250 ml IV STAT 04/25/20 03:23 UA RFX GERRY AND CULT IF INDIC [URIN] Stat 04/25/20 03:35 RT Aerosol Therapy [RC] ASDIRECTED 04/25/20 03:45 Lactated Ringers @ 125 MLS/HR(1,000ml) Lactated Ringers [Ringers, Lactated] 1,000 ml IV ASDIRECTED 04/25/20 03:46 CORONAVIRUS COVID-19 PCR PHL Stat
[2020-04-25] MEDS ORDERED: methylPREDNISolone Sodium Succinate 125 MG/2 ML SDV IVPUSH ONE (02:28)
[2020-04-25] MEDS ORDERED: Albuterol/Ipratropium 3.0-0.5 MG/3 ML Neb Soln NEB ONE (02:28)
[2020-04-25] MEDS ORDERED: cefTRIAXone 1 GM Vial IVPUSH ONE (03:20)
[2020-04-25] MEDS ORDERED: Azithromycin 500 MG in Sodium Chloride 0.9% 250 ML IV ONE (03:20)
[2020-04-25 03:32] LABS: ANION GAP 7.9 mmol/L (10-20)
[2020-04-25] MEDS ORDERED: Budesonide 0.5 MG/2 ML Neb Susp NEB ONE (03:34)
[2020-04-25] MEDS ORDERED: Lactated Ringers 1,000 ML IV SCH (03:45)
[2020-04-25 03:57] VITALS: BP 125/77; PULSE 91
[2020-04-25] MEDS ORDERED: LORazepam 2 MG/ML SDV IVPUSH ONE (04:17)
--- NOTE | 2020-04-25 07:58 | CR ---
[id number] RAD/RAD Chest PA or AP 1V EXAM: RAD Chest PA or AP 1V INDICATION: SHORT OF BREATH, HX LUNG CANCER COMPARISON: CT and radiograph examinations from March 14, 2020. DISCUSSION: Persistent cardiomegaly, central vascular congestion, and pleural effusions. Bilateral parenchymal opacities as well. Right infrahilar opacity is somewhat nodular and more prominent than the prior examination. As seen on radiograph there are extensive sclerotic osseous metastases. IMPRESSION: As above. Júnior Nye MD 04/25/20 0757 Thank you for allowing us to participate in the care of your patient.
== END 2020-04-25 05:22 | disposition short-term general hospital (02) ==
LOC: VM.ED 02:05
DX: J96.21 Acute and chronic respiratory failure with hypoxia (principal); N17.9 Acute kidney failure, unspecified; J90 Pleural effusion, not elsewhere classified; J18.9 Pneumonia, unspecified organism; C34.90 Malignant neoplasm of unspecified part of unspecified bronchus or lung; C79.51 Secondary malignant neoplasm of bone; I25.10 Atherosclerotic heart disease of native coronary artery without angina pectoris; K21.9 Gastro-esophageal reflux disease without esophagitis; E78.00 Pure hypercholesterolemia, unspecified; I25.2 Old myocardial infarction; Z95.5 Presence of coronary angioplasty implant and graft; Z79.82 Long term (current) use of aspirin; Z79.02 Long term (current) use of antithrombotics/antiplatelets; Z79.899 Other long term (current) drug therapy; Z20.822 Contact with and (suspected) exposure to COVID-19
CPT/HCPCS: 36415; 71045; 80053; 83605; 83880; 84484; 85025; 86140; 87040; 93005; 96365; 96375; 99285-25; J0456; J0696; J2060; J2930; J7050; J7120; J7620-GY; U0002